=== PATIENT | male | born 1955 | race Caucasian/White ===

== ENCOUNTER 2019-06-16 09:13 | Inpatient (IN) | payer MEDICAID ==
[~2019-06-16] VITALS: Ht 185.4 cm; Wt 147.7 kg
[2019-06-16] VITALS (7 sets, daily range): BP systolic 109–125; BP diastolic 45–83; Ht 185.4 cm; Wt 147.7 kg
--- NOTE | ~2019-06-16 | HEMODYNAMI ---
PATIENT:MARK MORA MEDICAL RECORD: [id number] : 59 [facility] [id number] ADMISSION DATE: 06/16/19 Generatedon:06/17/201910:41 Patient name: MARK MORA Patient #: [id number] SSN: : 1955 Date of study: 06/17/2019 Page: Of Hemodynamic Procedure Report Patient Data Patient Demographics Procedure consent was obtained First Name: MARK Gender: Male Last Name: ABBY : 1955 Patient #: [id number] Age: 64 year(s) Race: Unknown Additional ID: [id number] Contact details Address: [address] [place] [address] State: [place] City: [place] Zip code: [address] Past Medical History Allergies: No known allergies Admission Admission Data Admission Date: 06/16/2019 Admission Time: 12:24 Room #: D2117 Lab Results Lab Result Date: 06/17/2019 Lab Result Time: 9:41 Biochemistry Name Units Result Min Max BUN mg/dl 12 --(-*--)-- 7 18 Creatinine mg/dl 1.1 --(--*-)-- 0.6 1.3 CBC Name Units Result Min Max Hematocrit % 36.2 *-(----)-- 42 54 Hemoglobin g/dl 12.6 -*(----)-- 13.5 17.5 Procedure Procedure Types Cath Procedure Diagnostic Procedure LHC LH w/Coronaries PCI Procedure Coronary Stent Coronary Stent Initial Coronary Stent Additional Procedure Description Procedure Date Procedure Date: 06/17/2019 Procedure Start Time: 10:21 Procedure End Time: 10:40 Procedure Staff Name Function Brock Melendez MD Performing Physician Marco A Osullivan RT Monitor Tracy Fonseca RT Scrub Wendy Johnson RN Nurse Procedure Data Cath Procedure Fluoroscopy Diagnostic fluoroscopy Total fluoroscopy Time: 3.9 time: 3.9 min min Diagnostic fluoroscopy Total fluoroscopy dose: dose: 1762 mGy 1762 mGy Contrast Material Contrast Material Type Amount (ml) Isovue 370 145 Entry Location Entry Primary Successful Side Size Upsize Upsize Entry Closure Mueller ccessful Closure Location (Fr) 1 (Fr) 2 (Fr) Remarks Device Remarks Radial Right 6 Fr Mechanical artery Short Compression Estimated blood loss: 10 ml Diagnostic catheters Device Type Used For End Catheter Placement DIAGNOSTIC [place] 110cm 5 Procedure Fr catheter ([id number]) Procedure Complications No complications Procedure Medications Medication Administration Route Dosage 0.9% NaCl I.V. 100 ml/hr Oxygen etCO2 Nasal cannula 2 l/min Lidocaine 2% added to field 20 Heparin Flush Bag added to field 2 bags (1000units/500ml NS) Radial Cocktail added to field 1 syringe (Verapamil 2mg/Nitro 400mcg/Heparin 1500units) Versed I.V. 2 mg Fentanyl I.V. 50 mcg Versed I.V. 2 mg Fentanyl I.V. 50 mcg Heparin Bolus I.V. 5000 units Plavix P.O. 75 mg Hemodynamics Rest Heart Rate: 80 (bpm) Pressure Samples Time Site Value (mmHg) Purpose Heart Use Rate(bpm) 10:23 LV 87/14,27 Snapshot 86 Snapshots Pre Cath Intra NCS Post Cath Vital Signs Time Heart Resp SPO2 etCO2 NIBP (mmHg) Rhythm Pain Sedation Rate (ipm) (%) (mmHg) Status Level (bpm) 9:39:26 70 15 99 30 149/93(113) NSR 0 (11) 10(A) , No pain 9:43:58 73 18 100 25 141/103(120) NSR 0 (11) 10(A) , No pain 9:48:29 78 20 98 21 147/112(126) NSR 0 (11) 10(A) , No pain 9:53:05 82 18 97 25.5 159/110(128) NSR 0 (11) 10(A) , No pain 9:57:42 74 17 96 20 157/110(138) NSR 0 (11) 10(A) , No pain 10:02:06 72 16 98 13.5 154/100(112) NSR 0 (11) 10(A) , No pain 10:07:05 76 20 98 19.5 Measuring NSR 0 (11) 10(A) , No pain 10:10:46 77 16 97 30.7 155/96(108) NSR 0 (11) 10(A) , No pain 10:15:17 76 17 98 17 154/91(118) NSR 0 (11) 10(A) , No pain 10:19:51 77 16 97 16 150/103(115) NSR 0 (11) 9(A) , No pain 10:24:50 81 21 98 11 Measuring NSR 0 (11) 9(A) , No pain 10:25:35 78 18 97 17 150/95(117) NSR 0 (11) 9(A) , No pain 10:30:05 93 15 98 19.5 157/116(127) NSR 0 (11) 9(A) , No pain 10:34:42 75 23 96 12.7 162/115(135) NSR 0 (11) 10(A) , No pain 10:39:41 80 20 0 Measuring NSR 0 (11) 10(A) , No pain 10:40:44 81 24 0 170/125(151) NSR 0 (11) 10(A) , No pain Medications Time Medication Route Dose Verified Delivered Reason Not es Effectiveness by by 9:52:49 0.9% NaCl I.V. 100 Brock Wendy used for ml/hr Nora Johnson steel sampler 9:52:55 Oxygen etCO2 2 l/min Brock Wendy used for Nasal Nora Johnson procedure cannula RN 9:53:00 Lidocaine 2% added 20ml Brock Brock for local to vial Nora Melendez MD anesthetic field 9:53:06 Heparin Flush added 2 bags Brockananya Galeanorey used for Bag to Nora Melendez MD procedure (1000units/500ml field NS) 9:53:12 Radial Cocktail added 1 Brock Brock used for (Verapamil to syringe Nora Melendez MD procedure 2mg/Nitro field 400mcg/Heparin 1500units) 10:09:24 Versed I.V. 2 mg Brock Wendy for sedation Nora Johnson RN 10:09:32 Fentanyl I.V. 50 mcg Brock Wendy for sedation Nora Johnson RN 10:15:39 Versed I.V. 2 mg Brock Wendy for sedation Nora Johnson RN 10:15:54 Fentanyl I.V. 50 mcg Brock Wendy for sedation Nora Johnson RN 10:27:22 Heparin Bolus I.V. 5000 Brock Nguyen for arely ified units Nora Johnson anticoagulation with Dr. BALWINDER Melendez 10:34:48 Plavix P.O. 75 mg Brock Nguyen for Nora Johnson antiplatelet RN therapy Procedure Log Time Note 9:12:43 Diagnostic Cath Status : Elective 9:14:04 Tracy Fonseca RT(R) sent for patient. Start room use. 9:14:05 Time tracking: Regular hours (M-F 7:00 - 5:00) 9:14:09 Plan of Care:Hemodynamics will remain stable., Cardiac rhythm will remain stable., Comfort level will be maintained., Respiratory function will remain adequate., Patient/ family verbilizes understanding of procedure., Procedure tolerated without complication., Recovers from procedure without complications.. 9:33:15 Patient received from Med II to CCL 2 Alert and oriented. Tansferred to table in Supine position. 9:33:20 Signed procedure consent form obtained from patient. 9:33:21 Warm blankets applied, and sarina hugger turned on for patient comfort. 9:33:22 Correct patient and procedure confirmed by team. 9:37:58 Vital chart was started 9:46:12 Baseline sample Acquired. 9:46:15 Rhythm: sinus rhythm 9:46:17 Full Disclosure recording started 9:46:30 H&P Date Dictated: 06/16/2019 Within 30 days and on chart.. 9:46:33 Pre-procedure instructions explained to patient. 9:46:33 Pre-op teaching completed and patient verbalized understanding. 9:46:35 Family in patients room. 9:46:36 Patient NPO since Midnight. 9:46:40 Patient allergic to No known allergies 9:46:42 Is the patient allergic to Iodine/contrast media? No. 9:46:43 Is patient on blood thinner?Yes 9:46:46 ACC The patient was administered the following blood thiners within the last 24 hours: ACCPlavix 9:46:49 Patient diabetic? No. 9:46:58 Previous problem with sedation/anesthesia? No ? 9:46:59 Snore? Yes 9:47:00 Sleep apnea? No 9:47:01 Deviated septum? No 9:47:02 Opens mouth fully? Yes 9:47:03 Sticks out tongue? Yes 9:47:05 Airway obstruction? No ? 9:47:06 Dentures? No ? 9:47:09 Pre procedure: right dorsailis pedis pulse 2+ Normal; easily identifiable; not easily obliterated 9:47:11 Modified Chaitanya's test Ulnar < 7 seconds 9:47:13 Patient pain scale 0/10 ?. 9:47:19 IV patent on arrival in right antecubital, left wrist with 0.9% NaCl at [facility]. 9:47:55 Lab Result : BUN 12 mg/dl 9:: Lab Result : Hemoglobin 12.6 g/dl 9:47: Lab Result : Creatinine 1.1 mg/dl 9:47: Lab Result : Hematocrit 36.2 % 9::57 Lab results completed and on chart. 9:47:59 Right Radial & Right Groin area was prepped with chlora-prep and draped in sterile fashion 9:48:00 Alarms reviewed by R. N. 9:48:00 Sharps counted by scrub and verified by R.N. 9:48:03 Use device set Radial Dx or PCI 9:48:04 ACIST Syringe (99966) opened to sterile field. 9:48:04 Medline Cath Pack ([id number]) opened to sterile field. 9:48:05 Bag Decanter (2002S) opened to sterile field. 9:48:05 ACIST Hand Control (06225) opened to sterile field. 9:48:06 ACIST Manifold (01514) opened to sterile field. 9:48:06 Tegaderm 4 x 4 (1626W) opened to sterile field. 9:48:06 MBrace Wrist Support ([id number]) opened to sterile field. 9:48:08 SHEATH 6FR RAIN (0449421) opened to sterile field. 9:48:08 EMERALD Guide Wire (243-512) opened to sterile field. 9:52:49 0.9% NaCl 100 ml/hr I.V. was administered by Wendy Johnson RN; used for procedure; 9:52:55 Oxygen 2 l/min etCO2 Nasal cannula was administered by Wendy Johnson RN; used for procedure; 9:53:00 Lidocaine 2% 20ml vial added to field was administered by Brock Melendez MD; for local anesthetic; 9:53:06 Heparin Flush Bag (1000units/500ml NS) 2 bags added to field was administered by Brock Melendez MD; used for procedure; 9:53:12 Radial Cocktail (Verapamil 2mg/Nitro 400mcg/Heparin 1500units) 1 syringe added to field was administered by Brock Melendez MD; used for procedure; 9:59:40 Zero performed for pressure channel P1 10:08:02 Physician arrived 10:08:03 --------ALL STOP TIME OUT------ 10:08:05 Final Timeout: patient, procedure, and site verified with staff and physician. All members of the team are in agreement. 10:08:07 Right Radial & Right Groin site verified by team. 10:08:11 Fire Safety Assessment: A--An alcohol-based skin anteseptic being used preoperatively., C--Open oxygen or nitrous oxide is being used., D--An ESU, laser, or fiber-optic light is being used. 10:08:15 Physical assessment completed. ASA score P 2 - A patient with mild systemic disease as per Brock Melendez MD. 10:08:46 2) 60-89 Mildly reduced kidney function, and other findings (as for stage 1) point to kidney disease. 10:08:56 Maximum allowable contrast does (3.7 X eGFR X 0.75)199 ml. 10:09:00 Sedation plan: IV Moderate Sedation Medication:Versed, Fentanyl 10:09:24 Versed 2 mg I.V. was administered by Wendy Johnson RN; for sedation; 10:09:32 Fentanyl 50 mcg I.V. was administered by Wendy Johnson RN; for sedation; 10:15:19 Zero performed for pressure channel P1 10:15:39 Versed 2 mg I.V. was administered by Wendy Johnson RN; for sedation; 10:15:54 Fentanyl 50 mcg I.V. was administered by Wendy Johnson RN; for sedation; 10:21:45 Procedure started. 10:21:52 Local anesthetic to right radial artery with Lidocaine 2% by Brock Melendez MD.INITIAL ACCESS ONLY 10:22:18 A 6 Fr Short sheath was inserted into the Right Radial artery 10:22:42 A DIAGNOSTIC [place] 110cm 5 Fr catheter (040570) was advanced over the wire and used for Procedure. 10:24:03 LV hemodynamics recorded. 10:24:06 LV gram done using ABDI 10:24:12 EF : 40 % 10::24 RCA angiography performed. 10:25:10 Catheter exchanged over wire. 10:25:20 GUIDE 6FR XBLAD 3.5 catheter ([id number]) opened to sterile field. 10:25:30 6 Fr xblad 3.5 guide catheter was inserted over the wire 10::58 CHOICE PT Extra Support 182cm wire ([id number]) opened to sterile field. 10::58 INFLATOR Merit BasixCompak (OT9149) opened to sterile field. 10:27:22 Heparin Bolus 5000 units I.V. was administered by Wendy Johnson RN; for anticoagulation; verified with Dr. Melendez 10:27:43 Pre PCI Site: Te-Moak OM1 has 95% stenosis. 10:27:48 Pre PCI Site: Te-Moak pCirc has 90% stenosis. 10:27:54 choice pt es wire advanced. 10:29:01 Wire advanced across lesion. 10:32:52 Place stent Inflation Number: 1 A COBRA RX 4.0 X 15 Stent was prepped and advanced across the Prox CX . The stent was deployed at 11 COLE for 0:10 (min:sec) . 10:32:54 Stent catheter was removed intact over wire. 10:33:00 Wire redirected to om. 10:34:08 Wire advanced across lesion. 10:34:23 Place stent Inflation Number: 1 A COBRA RX 3.5 X 08 Stent was prepped and advanced across the 1st Ob Louann . The stent was deployed at 13 COLE for 0:10 (min:sec) . 10:34:48 Plavix 75 mg P.O. was administered by Wendy Johnson RN; for antiplatelet therapy; 10:34:52 Stent catheter was removed intact over wire. 10:35:00 Post PCI Site: Te-Moak OM1 has 0% stenosis. 10:35:06 Post PCI Site: Te-Moak pCirc has 0% stenosis. 10:35:08 Wire removed. 10:35:09 Guide catheter removed. 10:35:11 TR BAND Large ([id number]) opened to sterile field. 10:35:18 Sheath removed intact; hemostasis achieved with Mechanical Compression to the Right Radial artery. 10:35:19 Procedure ended.(Physican Out) 10:38:09 Fluoroscopy time 03.90 minutes. 10:38:15 Fluoroscopy dose: 1762 mGy 10:38:15 Flurop Dose total: 1762 10:38:19 Contrast amount:Isovue 370 145ml. 10:38:20 Sharps counted by scrub and verified by R.N. 10:38:22 TR band inflated with 10cc of air. 10:38:22 Insertion/operative site no bleeding no hematoma. 10:38:28 Post-procedure physical assessment completed. ASA score P 2 - A patient with mild systemic disease as per Brock Melendez MD. 10:38:29 Post procedure rhythm: unchanged. 10:38:31 Estimated blood loss: 10 ml 10:38:32 Post procedure instruction explained to patient.Patient verbalizes understanding. 10:38:32 Patient needs reinforcement of post procedure teaching. 10:38:39 Procedure type changed to Cath procedure, Diagnostic procedure, LHC, LHC w/Coronaries, PCI procedure, Coronary Stent, Coronary Stent Initial, Coronary Stent Additional 10:40:29 Procedure and supply charges have been captured, reviewed, submitted and are correct. 10:40:31 Procedure Complication : No complications 10:40:33 Vital chart was stopped 10:40:33 See physician's report for complete and final results. 10:40:34 Report given to Pre/Post Procedure Room. 10:40:36 Patient transfered to Pre/Post Procedure Room with Stretcher. 10:40:38 Procedure ended. 10:40:38 Full Disclosure recording stopped 10:40:43 End room use (Document Last) Intervention Summary Intervention Notes Time ActionType Lesion and Equipment Action# Pressure Duration Attributes Used 10:32:52 Place stent Prox CX COBRA RX 1 11 00:10 4.0 X 15 Stent 10:34:23 Place stent 1st Ob Louann COBRA RX 1 13 00:10 3.5 X 08 Stent Device Usage Item Name Manufacture Quantity Catalog Number Hospital Part Current Minimal Lot# / Charge Number Stock Stock Serial# Code ACIST Syringe Acist 1 01795 541701 606226 882811 20 (69170) Neventum Inc Medline Cath Medline 1 [id number] 645620 22633 916711 5 Pack ([id number]) Bag Decanter Microtek 1 887429 65875 029997 5 () Duvas Technologies Inc. ACIST Hand Acist 1 08361 440828 980499 535977 5 Control Medical (43402) Systems Inc ACIST Manifold Acist 1 48077 307131 017148 148126 5 (67222) Medical Systems Inc Tegaderm 4 x 4 3M 1 1626W 472165 871656 518284 5 (1626W) MBrace Wrist Advanced 1 140-0250-00 246729 31063 444172 5 Support Vascular ([id number]) Dynamics SHEATH 6FR Cardinal 1 5677427 528089 1189623 851300 5 RAIN (3155963) Health EMERALD Guide Cardinal 1 502-455 472019 110941 791447 5 Wire (502455) Health DIAGNOSTIC Terumo 1 40-5013 561438 592168 241805 5 [place] 110cm 5 Fr catheter (475195) GUIDE 6FR Cardinal 1 71727018 426166 658622 406922 10 XBLAD 3.5 Health catheter (43792784) CHOICE PT [place] 1 [id number] 504739 379719 947969 5 Extra Support Scientific 182cm wire ([id number]) INFLATOR Merit Merit 1 WY3912 571184 059934 249159 15 SomethingIndie (BO9113) COBRA RX 4.0 X Celonova 1 582-25-00716 211380 330257023 140526 8 [id number] 15 stent Biosciences (633-31-98094) COBRA RX 3.5 X Celonova 1 099-64-12425 072771 542203 9855883 3 [id number] 08 stent Biosciences ([id number]) TR BAND Large Terumo 1 [id number] 957641 498950 701607 40 ([id number]) Signature Audit [facility] Time Signature Unsigned Intra-Procedure 06/17/2019 Marco A Osullivan 10:41:10 AM RT(R) Signatures Performing Physician : Signature : Brock Melendez MD Date : Time : Monitor : Marc oA Osullivan RT Signature : Date : Time : Nurse : Wendy Alex RN Signature : Date : Time : [place] [address] [facility] [place] [address]
--- NOTE | 2019-06-16 09:44 | NUR ---
PATIENT PRESENTS TO ED VIA [facility] WITH CC OF CHEST PAIN AND SHORTNESS OF BREATH. MEDIC REPORTS THE PATIENT CAME WALKING UP TO HIM AT THE STATION HOUSE AND PRESENTED POSSIBLE IL ON THE SCENE. ON ASSESSMENT PT IS AAOX4 - DENIES CHEST PAIN BUT REPORTS "REALLY I WAS JUST HAVING MORE TROUBLE GETTING MY BREATH" - NEGATIVE FOR DIAPHORESIS, CHEST PAIN AND PRESSURE. VSS. EKG IS UNREMARKABLE FOR AN IL AND REVIEWED BY ER PHYSICIAN.
[2019-06-16 09:47] LABS: BASOPHILS 0.3 % (0-2); EOSINOPHILS 1.5 % (0-7); HEMATOCRIT 36.2 % (42.0-54.0); HEMOGLOBIN 12.6 g/dL (13.5-17.5); IMMATURE GRANULOCYTES 0.6 % (0-5); LYMPHOCYTES 33.1 % (15-50); MCH 29.9 pg (26.0-34.0); MCHC 34.8 g/dL (31.0-37.0); MEAN PLATELET VOLUME 11.3 fL (7.4-10.4); MONOCYTES 16.4 % (2-11); NEUTROPHILS 48.1 % (40-80); PLATELET COUNT 209 10x3/uL (130-400); RBC 4.21 10x6/uL (4.20-6.10); RDW 15.4 % (11.5-14.5); WBC 10.8 10x3/uL (4.8-10.8)
[2019-06-16 09:59] LABS: APTT 30.1 SECONDS (22.8-39.4); INR 1.06 (0.85-1.17); PROTIME 13.3 SECONDS (11.6-15.0)
[2019-06-16 10:06] LABS: ALBUMIN 3.1 g/dL (3.4-5.0); ALKALINE PHOSPHATASE 200 U/L (46-116); ALT (SGPT) 205 U/L (10-68); BILIRUBIN - TOTAL 0.51 mg/dL (0.2-1.3); CALC OSMOLALITY 276 mosm/kg (275-300); CALCIUM 7.9 mg/dL (8.5-10.1); CARBON DIOXIDE 27.5 mmol/L (21.0-32.0); CHLORIDE - SERUM 100 mmol/L (98-107); CREATININE - SERUM 1.1 mg/dL (0.6-1.3); GLUCOSE 156 mg/dL (74-106); POTASSIUM - SERUM 3.1 mmol/L (3.5-5.1); PROTEIN - SERUM 7.1 g/dL (6.4-8.2); SODIUM 137 mmol/L (136-145); UREA NITROGEN 12 mg/dL (7-18); eGFR NON AFRICAN AMERICAN 72 mL/min (90-120)
--- NOTE | 2019-06-16 10:11 | NUR ---
ASA AND NITRO NOT ADMINISTERED PER DR MUHAMMAD'S VERBAL ORDER - PARAMETERS OF ORDER ARE NOT MET.
--- NOTE | 2019-06-16 10:14 | NUR ---
PT STATES "I'M SUPPOSED TO BE TAKING MEDICINE FOR HIGH CHOLESTEROL, HIGH BLOOD PRESSURE AND ZOLOFT BUT I RAN OUT OF THEM SO I JUST NEVER WENT TO THE DOCTOR AND GOT THEM FILLED AGAIN." \\ PT FURTHER REPORTS EXTENSIVE ETOH AND SMOKING HX - WITH DAILY ETOH INTAKE INCLUDING BEER AND LIQUOR AND SMOKING AT "LEAST A PACK A DAY" -
[2019-06-16 10:22] LABS: CKMB 3.5 U/L (0.0-3.6); CREATINE KINASE 303 UL (21-232); MAGNESIUM - SERUM 1.7 mg/dL (1.8-2.4); PRO BNP 1322 pg/mL (0-125)
[2019-06-16 10:28] LABS: TROPONIN-I 1.822 ng/mL (0.000-0.060)
--- NOTE | 2019-06-16 10:29 | NUR ---
CRITICAL TROPONIN 1.822 REPORTED TO ED BALANTINE
--- NOTE | 2019-06-16 12:00 | NUR ---
there was a delay in administering meds because patient was having an echo test performed.
--- NOTE | 2019-06-16 14:10 | NUR ---
TRANSFER FROM ER BY W/C. ADAMINTED TO ROOM. CALL LIGHT IN REACH. WILL CONT. PLAN OF CARE.
[2019-06-16] MEDS ORDERED: ZOCOR20 MG PO (14:29)
[2019-06-16] MEDS ORDERED: METOPROLOL TART50 MG PO (14:29)
[2019-06-16] MEDS ORDERED: ZOLOFT50 MG PO (14:30)
[2019-06-16] MEDS ORDERED: LISINOPRIL-HCT1 EAC7 PO (14:31)
--- NOTE | 2019-06-16 19:19 | NUR ---
RESUMING PATIENT CARE. PATIENT IS ALERT AND ORIENTED. RESPIRATIONS ARE EVEN AND UNLABORED. PATIENT REMAINS ON 2L NC. NO S/S OF DISTRESS. NO C/O PAIN. CALL LIGHT WITHIN REACH. NEEDS MET. WILL CPOC.
[2019-06-17] VITALS: BP 118/75
[2019-06-17 04:00] VITALS: BP 134/84
[2019-06-17 06:40] LABS: ANION GAP 10.8 mmol/L (8-16); CALCIUM 7.9 mg/dL (8.5-10.1); CREATININE - SERUM 1.2 mg/dL (0.6-1.3); MAGNESIUM - SERUM 1.7 mg/dL (1.8-2.4); PHOSPHOROUS 2.6 mg/dL (2.5-4.9); POTASSIUM - SERUM 3.8 mmol/L (3.5-5.1)
[2019-06-17 06:45] LABS: BASOPHILS 0.4 % (0-2); EOSINOPHILS 2.5 % (0-7); HEMATOCRIT 37.2 % (42.0-54.0); HEMOGLOBIN 12.8 g/dL (13.5-17.5); IMMATURE GRANULOCYTES 0.8 % (0-5); LYMPHOCYTES 35.8 % (15-50); MCHC 34.4 g/dL (31.0-37.0); MCV 87.3 fL (80.0-100.0); MEAN PLATELET VOLUME 11.6 fL (7.4-10.4); MONOCYTES 17.6 % (2-11); NEUTROPHILS 42.9 % (40-80); PLATELET COUNT 205 10x3/uL (130-400); RBC 4.26 10x6/uL (4.20-6.10); RDW 15.4 % (11.5-14.5); WBC 10.1 10x3/uL (4.8-10.8)
--- NOTE | 2019-06-17 09:42 | NUR ---
PRE-OPS GIVEN. TO GLOBAL COORDINATOR BY BED.
[2019-06-17 09:49] VITALS: BP 118/79
[2019-06-17] MEDS ORDERED: PLAVIX75 MG PO (11:01)
[2019-06-17] MEDS ORDERED: COREG12.5 MG PO (11:01)
[2019-06-17] MEDS ORDERED: LASIX40 MG PO (11:01)
[2019-06-17] MEDS ORDERED: K-TAB10 MEQ PO (11:02)
[2019-06-17] MEDS ORDERED: PRAVACHOL40 MG PO (11:02)
--- NOTE | 2019-06-17 11:05 | NUR ---
2L 2NC, NO RESP DISTRESS. RIGHT WRIST TR BAND CDI, NO BLEEDING OR HEMATOMA NOTED. NO C/O PAIN OR NAUSEA. VSS. CALL LIGHT WITHIN REACH.
--- NOTE | 2019-06-17 11:35 | NUR ---
SIPPING ON DRINK AND EATING SANDWICH WITH NO C/O NAUSEA. RIGHT WRIST TR BAND CDI, NO BLEEDING OR HEMATOMA NOTED. DENIES ANY NEEDS. VSS. WILL CONTINUE TO MONITOR.
--- NOTE | 2019-06-17 11:50 | NUR ---
RESTING QUIETLY WITH EYES CLOSED. RIGHT WRIST TR BAND CDI, NO BLEEDING OR HEMATOMA NOTED. DENIES ANY C/O AT THIS TIME. VSS. CALL LIGHT WITHIN REACH.
--- NOTE | 2019-06-17 12:20 | NUR ---
CONTINUES TO REST COMFORTABLY WITH NO C/O. RIGHT WRIST TR BAND CDI, NO BLEEDING OR HEMATOMA NOTED. DENIES ANY NEEDS. VSS. CALL LIGHT WITHIN REACH.
--- NOTE | 2019-06-17 13:20 | NUR ---
RIGHT WRIST TR BAND CDI, NO BLEEDING OR HEMATOMA NOTED. NO C/O PAIN OR NAUSEA. VSS. WILL CONTINUE TO MONITOR.
--- NOTE | 2019-06-17 14:05 | NUR ---
3CC OF AIR REMOVED FROM TR BAND WITH NO BLEEDING NOTED. VSS. WILL CONTINUE TO MONITOR.
--- NOTE | 2019-06-17 14:20 | NUR ---
3CC OF AIR REMOVED FROM TR BAND WITH NO BLEEDING NOTED.
--- NOTE | 2019-06-17 14:40 | NUR ---
LEFT PIV D/C'D WITH CATHETER INTACT, BAND AID TO SITE. UP TO BEDSIDE TO GET DRESSED. AMBULATED TO RESTROOM.
--- NOTE | 2019-06-17 14:50 | NUR ---
REMAINING AIR REMOVED FROM TR BAND WITH NO BLEEDING NOTED. DRESSING PLACED TO SITE. DISCHARGE INSTRUCTIONS ALONG WITH MULTIPLE PRESCRIPTIONS GIVEN, BOTH VERBALIZED UNDERSTANDING.
--- NOTE | 2019-06-17 15:05 | NUR ---
TAKEN OUT VIA WHEELCHAIR BY CATH CABLE HOOKER. LEFT FACILITY WITH FAMILY AND ALL PERSONAL BELONGINGS
--- NOTE | 2019-06-17 16:51 | OP ---
PATIENT NAME: MARK MORA MEDICAL RECORD: [id number] :59 LOCATION:[facility] ADMISSION DATE:06/16/19 SURGEON: BRIE ROSA MD DATE OF OPERATION: 06/17/2019 DATE OF SERVICE: 06/17/2019 PROCEDURES: 1. PTCA stent of left circumflex. 2. PTCA stent of first obtuse marginal. 3. Left heart catheterization. 4. Selective coronary angiography. 5. Left ventriculogram. INDICATION: Non-Q-wave myocardial infarction. PROCEDURE IN DETAIL: After informed consent was obtained and after a detailed explanation of risks, benefits as well as alternative therapies, the patient elected to proceed with angiogram and angioplasty. The right radial area was prepped and draped in normal sterile fashion. Right radial artery was cannulated via modified Seldinger technique with placement of 6-Belarusian sheath. All catheter exchanged through this sheath. FINDINGS: The left ventriculogram was performed in standard 30-degree ABDI view, reveals global hypokinesis, ejection fraction is 30%. SELECTIVE CORONARY ANGIOGRAPHY: 1. Left main is with no significant angiographic disease. 2. Left anterior descending has moderate irregularities, but no flow-limiting stenosis. 3. The left circumflex has 95% stenosis of the large first obtuse marginal and 90% stenosis in the mid circ. 4. Right coronary is totally occluded, fills via left to right collaterals off the circumflex. PTCA STENT OF THE CIRCUMFLEX AND OBTUSE MARGINAL: Circumflex was addressed with a 4.0 x 15 mm Cobra stent. The OM1 with a 3.5 x 8 mm Cobra stent. Result was 0% residual. IMPRESSION: Successful percutaneous coronary transluminal angioplasty stent of the left circumflex going from 95% initial stenosis to 0% residual. TRANSINT:[id number] Voice Confirmation ID: [id number] DOCUMENT ID: [id number] BRIE ROSA MD at 1651 CC: [id number] DICTATION DATE: 06/17/19 1041 BEVEL FACE STONER AND POLISHER: 06/17/19 1056 DIS IN 06/17/19 [place] [address]
--- NOTE | 2019-06-17 16:51 | HP ---
PATIENT: MARK MORA MEDICAL RECORD: [id number] ACCOUNT: [id number] LOCATION:[facility] : 59 ADMISSION DATE: 06/16/19 PCP: No PCP HISTORY AND PHYSICAL EXAMINATION DIAGNOSES: 1. Non-Q-wave myocardial infarction. 2. Coronary artery disease. 3. Previous percutaneous transluminal coronary angioplasty stent. 4. Cardiomyopathy. 5. Congestive heart failure. 6. Shortness of breath, dyspnea on exertion with pulmonary edema. 7. Hypertension. 8. Hyperlipidemia. HISTORY OF PRESENT ILLNESS: Mr. Mora relocated here from [place]. He has a cardiac history of PTCA stent approximately 10 years ago. He, for the past 2 weeks, has had increasing shortness of breath, lower extremity edema, and chest discomfort. He presents with pulmonary edema and a non-Q-wave myocardial infarction. PHYSICAL EXAMINATION: GENERAL APPEARANCE: Well-nourished, well-developed, appears stated age. Level of distress, comfortable. PSYCHIATRIC: Mental status, alert, normal affect. Orientation, oriented to time, place and person. EYES: Lids and conjunctiva, noninjected. No discharge, no pallor. ENT: Lips, teeth, gums, normal dentition. Oropharynx, no cyanosis, no pallor. NECK: Carotid arteries, bilateral normal upstroke, no bruits, no thrills. JUGULAR VEINS: No jugular venous pressure or distention. CERVICAL LYMPH NODES: Nontender, nonenlarged. THYROID: Not enlarged. Nontender. No nodules. LUNGS: Respiratory effort, unlabored. CHEST: Normal curvature. No thoracic deformity. No chest wall tenderness. Percussion, resonant. Auscultation, clear. No wheezes, no rales, no rhonchi. CARDIOVASCULAR: Precordial exam, nondisplaced. No heaves or pericardial thrills. Rate and rhythm, regular. Heart sounds, normal S1, normal S2. No S3, no gallop, no rub. Systolic murmur, not heard. Diastolic murmur, not heard. EXTREMITIES: No cyanosis, no edema. Peripheral pulses, full and equal in all extremities, except as noted. No bruits appreciated. ABDOMEN: Soft, nondistended. Normal aorta. No bruit. Nontender. No masses. Liver, nontender, no hepatomegaly. Spleen, nontender, no splenomegaly. MUSCULOSKELETAL: No joint tenderness. No joint swelling. No erythema. NEUROLOGICAL: Normal gait, normal strength, normal tone. SKIN: Warm and dry. OVERALL IMPRESSION: Non-Q-wave myocardial infarction. No doubt he has recurrent hemodynamically significant coronary artery disease. We will diurese him with IV Lasix. Get an echocardiogram to evaluate the cardiomyopathy. Start Coreg, Pravachol, aspirin, and Plavix. Plan for cardiac catheterization in the a.m. TRANSINT:[id number] Voice Confirmation ID: [id number] DOCUMENT ID: [id number] HISTORY AND PHYSICAL [id number] MARK MORA, BRIE JOHNSON at 1651 CC: [id number] DICTATION DATE: 06/16/19 1239 PRESSURE TESTER: 06/16/19 1250 DIS IN 06/17/19 [facility] [address] [place] [address]
--- NOTE | 2019-06-17 16:51 | DS ---
PATIENT:MARK MORA :59 MEDICAL RECORD: [id number] DISCHARGE SUMMARY ADMISSION DATE: 06/16/19 DISCHARGE DATE: 06/17/19 DATE OF SERVICE: 06/17/2019. DIAGNOSES: 1. Non-Q-wave myocardial infarction. 2. Ischemic cardiomyopathy. 3. Congestive heart failure. 4. Coronary artery disease. 5. Percutaneous transluminal coronary angioplasty stent of left circumflex this admission. 6. Hypertension. HOSPITAL COURSE: Mr. Mora presents with congestive heart failure and found to have an ejection fraction 30%. Coronary angiography reveals total occlusion of the RCA with collaterals 90% to 95% stenosis of the circumflex and underwent successful PTCA stent of the left circumflex, discharged home with the addition of pravastatin, aspirin, Plavix, Coreg, Lasix, potassium. Will follow up with [facility] in 1 month. TRANSINT:[id number] Voice Confirmation ID: [id number] DOCUMENT ID: [id number] BRIE ROSA MD at 1651 CC: [id number] DICTATION DATE: 06/17/19 1039 RN ONCOLOGY RESEARCH: 06/17/19 1047 DIS IN 06/17/19 [facility] [address] [id number]
--- NOTE | 2019-06-17 16:51 | EC ---
PATIENT:MARK MORA DATE OF SERVICE: 06/16/19 SEX: M MEDICAL RECORD: [id number] DATE OF : 59 [facility] AGE OF PATIENT: 64 ADMISSION DATE: 06/16/19 REFERRING PHYSICIAN: INTERPRETING PHYSICIAN: BRIE MELENDEZ MD ECHOCARDIOGRAM REPORT ECHO CHARGES 4 ECHO COMPLETE Date: 06/16/19 CLINICAL DIAGNOSIS: ECHOCARDIOGRAPHIC MEASUREMENTS (adult normal given) AC root (d.<3.7cm) 3.3 cm LV Septum d (<1.2 cm> 1.4 cm Valve Excursion 2.1 cm LV Septum (systole) 2.3 cm Left Atria (s.<4.0cm> 4.4 cm LVPW d(<1.2cm) 1.4 cm RV (d.<2.3cm) 2.6 cm LVPW (sytole) 2.1 cm LV diastole(<5.6CM) 6.3 cm MV E-F(>70mm/sec) cm LV systole 4.5 cm LVOT Diameter 2.1 cm MV exc.(>10mm) cm Est.ejection fraction (50-75%) % DOPPLER: LVIT cm/sec A cm/sec E 98.0 cm/sec LA cm/sec RVSP 25.0 mmHg LVOT 70.0 cm/sec AOP1/2T m/s Asc. Ao 103 cm/sec RVOT 51.0 cm/sec RA cm/sec PA 69.0 cm/sec AV Gradient Peak 4.3 mmHg AV Mean 1.9 mmHg AV Area 3.0 cm MV Gradient Peak 4.8 mmHg MV Mean 2.0 mmHg MV Area cm COMMENTS: Track Production Engineer: Karla SALCIDOOE Pantry Cook: 1 Dr. Melendez TAPE# PACS Pericardial Effusion N DATE OF SERVICE: 06/16/2019 PROCEDURE: Echocardiogram. FINDINGS: 1. Left ventricular chamber size is dilated. Left ventricular systolic function is moderately reduced at 30% to 35%. 2. Left atrium is enlarged at 4.4 cm. Right atrium and right ventricular chamber sizes are as well mildly dilated. 3. Valvular structures have normal structure and motion. ECHOCARDIOGRAM REPORT [id number] MARK MORA 4. Doppler interrogation reveals moderate mitral regurgitation, no other valvular insufficiency or stenosis. Pulmonary systolic pressure is preserved at 25 mmHg. 5. No evidence of pericardial effusion or left ventricular thrombus. TRANSINT:[id number] Voice Confirmation ID: [id number] DOCUMENT ID: [id number] BRIE MELENDEZ MD at 1651 CC: [id number] DICTATION DATE: 06/17/19 1048 AUTO DAMAGE INSURANCE APPRAISER: 06/17/19 1104 DIS IN 06/17/19 [facility] [address] [id number]
== END 2019-06-17 15:05 | disposition home or self-care (01) | DRG 248 ==
LOC: D.ER 09:13 → D.M2 12:24 → D.CLR 06-17 11:07
PROVIDERS: Family Medicine; ADMIT Internal Medicine Interventional Cardiology; ATTEND Internal Medicine Interventional Cardiology
PROC: B2111ZZ Fluoroscopy of Multiple Coronary Arteries using Low Osmolar Contrast (ICD-10-PCS; 2019-06-17)
PROC: B2151ZZ Fluoroscopy of Left Heart using Low Osmolar Contrast (ICD-10-PCS; 2019-06-17)
PROC: 02713EZ Dilation of Coronary Artery, Two Arteries with Two Intraluminal Devices, Percutaneous Approach (ICD-10-PCS; principal; 2019-06-17 09:00)
PROC: 4A023N7 Measurement of Cardiac Sampling and Pressure, Left Heart, Percutaneous Approach (ICD-10-PCS; 2019-06-17 09:00)
DX: I21.4 Non-ST elevation (NSTEMI) myocardial infarction (principal); I50.21 Acute systolic (congestive) heart failure; I25.10 Atherosclerotic heart disease of native coronary artery without angina pectoris; I11.0 Hypertensive heart disease with heart failure; E78.5 Hyperlipidemia, unspecified; I25.5 Ischemic cardiomyopathy